=== PATIENT | male | born 1955 | race Caucasian/White ===

== ENCOUNTER 2024-01-16 20:54 | Emergency (ER) | payer SELFPAY ==
[~2024-01-16] VITALS: Ht 172.7 cm; Wt 74.8 kg
[2024-01-16 21:18] VITALS: BP 131/90; PULSE 57; RESP 18; TEMP 98.2; O2SAT 98
== END 2024-01-17 05:02 | disposition left against medical advice (07) ==
LOC: ER 20:54
DX: R42 Dizziness and giddiness (principal); Z53.21 Procedure and treatment not carried out due to patient leaving prior to being seen by health care provider
CPT/HCPCS: 99281